=== PATIENT | male | born 1990 | race Caucasian/White ===

== ENCOUNTER 2023-12-06 08:49 | Outpatient (REF) | payer OTHER, MEDICAID, SELFPAY ==
--- NOTE | 2023-12-06 13:10 | MHC.AU.HA1 ---
Hearing Aid Evaluation Date of Visit: 12/06/23 Station Superintendent Used: ASL- In Person Historical Information: Description of Hearing: Severe to profound sensorineural hearing loss. Current personal amplification information, if applicable: Lisbeth Q50 UP Summary: Reports that his 10 year old hearing aids are no longer meeting his needs. Interested in new technology with bluetooth capability. Long time hearing aid user. Reviewed options. Currently has [employer]. Pt. uses an iPhone that he would like to pair aids with. Would like same color and style earmolds as he has had. Impressions taken without incident Au. Hearing Aid Prescription: Based on the individual?s shared listening needs, communication environments, dexterity, desire for connectivity, and personal preferences, the following prescription for amplification has been made: Right ear: Make, Model, Color: Lisbeth L 70 UP , chestnut Battery Size: 675 Type of Earmold/Dome/CShell/SlimTip: silicone canal Left ear: Make, Model, Color: Lisbeth L 70 UP, chestnut Battery Size: 675: Type of Earmold/Dome/CShell/SlimTip: silicone canal Plan of Care: Patient wishes to purchase hearing aids as prescribed Action Taken/Action Needed: Earmold Impressions Taken Prior authorization to be requested Medical Clearance to be requested from PCP/ENT Hearing Instrument Fitting to be scheduled when materials arrive Comments: Pt prefers to be contacted via e-mail for scheduling. Primary Diagnosis: H90.3 Bilateral Sensorineural Hearing Loss Signature: Provider: Estrada Peña, CCC-A
== END 2023-12-06 08:50 | disposition home or self-care (01) ==
LOC: HO.SH 08:49
PROVIDERS: Visit Provider Internal Medicine
DX: Z01.118 Encounter for examination of ears and hearing with other abnormal findings (principal); Z46.1 Encounter for fitting and adjustment of hearing aid; H90.3 Sensorineural hearing loss, bilateral
CPT/HCPCS: 92552; 92555; 92591; V5275

== ENCOUNTER 2024-01-20 14:46 | Outpatient (REF) | payer OTHER, MEDICAID, SELFPAY | END 2024-01-20 14:47 | disposition home or self-care (01) | LOC: HO.HAP 14:46 | PROVIDERS: Visit Provider Internal Medicine | DX: Z46.1 Encounter for fitting and adjustment of hearing aid (principal); H90.3 Sensorineural hearing loss, bilateral | CPT/HCPCS: V5011; V5020; V5160; V5261; V5264; V5266 ==

== ENCOUNTER 2024-02-14 12:48 | Outpatient (REF) | payer OTHER, MEDICAID, SELFPAY | END 2024-02-14 12:49 | disposition home or self-care (01) | LOC: HO.HAP 12:48 | PROVIDERS: Visit Provider Internal Medicine | DX: Z13.89 Encounter for screening for other disorder (principal) ==

== ENCOUNTER 2024-05-24 08:56 | Outpatient (REF) | payer OTHER, MEDICAID, SELFPAY | END 2024-05-24 08:57 | disposition home or self-care (01) | LOC: HO.HAP 08:56 | PROVIDERS: Visit Provider Internal Medicine | DX: Z13.89 Encounter for screening for other disorder (principal) ==